=== PATIENT | male | born 1995 | race Caucasian/White ===

== ENCOUNTER 2018-05-03 23:02 | Emergency (ER) | payer SELFPAY ==
[~2018-05-03] VITALS: Ht 177.8 cm; Wt 95.5 kg
[2018-05-03] MEDS ORDERED: MUCINEX 60600 MG/TA1 PO (23:11)
[2018-05-04] MEDS ORDERED: PREDNISONE20 MG PO (00:11)
[2018-05-04] MEDS ORDERED: AMOXICILLIN 8751 TAB PO (00:11)
[2018-05-04 00:26] VITALS: BP 145/111; PULSE 71; TEMP 96.9
== END 2018-05-04 00:28 | disposition home or self-care (01) ==
LOC: COL.ER 23:02
DX: J01.90 Acute sinusitis, unspecified (principal); F17.210 Nicotine dependence, cigarettes, uncomplicated
CPT/HCPCS: J7512

== ENCOUNTER → 2018-06-06 | Outpatient (CLI) | payer SELFPAY ==
[~2018-06-06] MED LIST: AMOXICILLIN 8751 TAB PO; MUCINEX 60600 MG/TA1 PO; PREDNISONE20 MG PO
== END ==
LOC: COL.RAD 10:52
DX: R05 Cough (principal)